=== PATIENT | male | born 1965 | race Caucasian/White ===

== ENCOUNTER → 2019-07-15 10:05 | Outpatient (CLI) | payer OTHER, SELFPAY ==
--- NOTE | 2019-07-15 | DI.NM.S_ITS ---
PROCEDURE: NM IMTIAZ PERF SPECT REST & STR Rest and exercise myocardial perfusion SPECT with gated imaging and ejection fraction RADIOPHARMACEUTICAL: 14.0 mCi Tc-99m sestamibi IV at rest and 25.7 mCi Tc-99m sestamibi IV at peak exercise. A one day-protocol was performed. INDICATIONS: Chest pain, unspecified TECHNIQUE: Radiopharmaceutical was injected at peak stress test, and also at rest. SPECT images were obtained. SPECT myocardial perfusion images were displayed in short axis, horizontal long axis, and vertical long axis views. Gated images were reviewed using [employer] software. COMPARISON: None. CARDIAC STRESS: A standard John treadmill exercise tolerance test was performed by the patient under the supervision of an attending staff. The patient exercised for 9 minutes and 41 seconds reaching 10.1 METs; functional aerobic impairment (ARIADNA) is -5% on active scale. Hemodynamic data: There is normal blood pressure and heart rate response to exercise stress. Patient achieved 98% of maximum predicted heart rate at peak exercise. Symptoms: Patient denied chest pain during exercise. EKG: No diagnostic EKG changes of ischemia; no ectopy. FINDINGS: Raw data: There is good myocardial labeling by radiotracer. No significant motion artifacts. Ilrf-rt-nfpav ratio is 0.26 (normal is less than 0.38 for sestamibi tracer, and less than 0.50 for thallium tracer). Left ventricle function: Gated images demonstrate normal left ventricle wall thickening. No segmental wall motion abnormality. No transient ischemic dilation; TID is 1.03 (normal less than 1.3). The left ventricle resting end-diastolic volume is 124 mL. Left ventricle stress ejection fraction is 61%; normal values are above 45%. Myocardial perfusion: There is normal distribution of activity in the left and right ventricular myocardium. No fixed or reversible perfusion defects. IMPRESSION: Low risk, normal treadmill nuclear stress test 1) No perfusion evidence of ischemia or infarction. 2) Normal left ventricular size, wall motion, and systolic function (EF post stress 61%). 3) No angina during the study. 4) No ECG evidence of ischemia. 5) Above average exercise tolerance (10.1 METs, ARIADNA -5% on active scale). Target heart rate achieved. Appropriate blood pressure response to exercise. 6) No prior nuclear stress test available for comparison. Dictated by: Irma Lundberg MD on 07/15/2019 at 16:36 Approved by: Irma Lundberg MD on 07/15/2019 at 16:40
--- NOTE | 2019-07-15 14:52 | PM.TREADMILL ---
Cardiac Stress Test Report Referral & Results Date Patient Seen: 07/15/19 Time Patient Seen: 14:52 Requesting provider: Silvia Gustafson Indication: Chest discomfort Rest ECG: Unremarkable Procedure Note: Today following both written and verbal informed consent the patient was exercised according to a standard John protocol patient went for a total of 9 minutes 40 achieving a maximum heart rate of 161 maximum systolic blood pressure of 188. This is approximately 10.1 METS. Exercise was terminated at this point because of targets were met. Patient was also given Cardiolite through a previously started Hep-Lock IV by the diagnostic imaging staff approximately 1 minute prior to the cessation of exercise. No ST-T segment changes Heart rate and blood pressure response Functional aerobic impairment rates about-5% on the active scale or 105% of normal Rare PAC Impression: No evidence of ischemia based on ECG criteria Please see perfusion imaging report as well Please note: Actual ECG tracings can be found in the PACS system.
== END ==
PROVIDERS: Visit Provider Family Medicine
DX: R07.89 Other chest pain (principal)
CPT/HCPCS: 78452; 93016; 93017; 93018; A9502

== ENCOUNTER 2022-01-19 16:21 | Emergency (ER) | payer BC, OTHER, SELFPAY ==
[2022-01-19] VITALS (7 sets, daily range): BP systolic 131–172; BP diastolic 82–110; PULSE 64–94; RESP 11–21; TEMP 36.8; O2SAT 97–98; BMI 29.3
--- NOTE | 2022-01-19 16:28 | DI.RAD.S_ITS ---
PROCEDURE: XR CHEST 1V INDICATIONS: chest pain TECHNIQUE: One view of the chest was acquired. COMPARISON: None. FINDINGS: Surgical changes and devices: None. Lungs and pleura: Reduced lung volumes. Lungs are clear. No pleural effusions or pneumothorax. Mediastinum: Mediastinal contours appear normal. Heart size is normal. Bones and chest wall: No suspicious bony lesions. Overlying soft tissues appear unremarkable. IMPRESSION: No acute cardiopulmonary abnormality. Dictated by: Malcolm Murrieta M.D. on 01/19/2022 at 17:01 Approved by: Malcolm Murrieta M.D. on 01/19/2022 at 17:02
[2022-01-19 16:52] LABS: Add Manual Diff / Slide Review NO; Basophils Absolute Auto 0 /uL (0-100); Basophils Percent Auto 0.7 % (0-2); Eosinophils Absolute Auto 100 /uL (0-450); Eosinophils Percent Auto 2.2 % (2-4); Hemoglobin 12.3 g/dL (13.5-17.5); Lymphocytes Absolute Auto 1800 /uL (1100-4500); Lymphocytes Percent Auto 27.5 % (25-40); Mean Corpuscular HGB Conc 34.1 % (30-36); Mean Corpuscular Hemoglobin 30.8 PG (26-34); Mean Corpuscular Volume 90.2 fL (80-100); Monocytes Absolute Auto 700 /uL (0-900); Monocytes Percent Auto 10.3 % (3-14); Neutrophils Absolute Auto 3800 /uL (1500-7000); Neutrophils Percent Auto 59.3 % (50-75); Platelet Count 221 X10^3/uL (150-400); Red Blood Cell Count 3.99 X10^6/uL (4.5-5.9); Red Cell Distribution Width 13.4 % (11.6-14.8); White Blood Cell Count 6.5 X10^3/uL (4.5-11.0)
[2022-01-19 17:00] LABS: Alanine Aminotransferase 33 IU/L (<50); Albumin 4.8 g/dL (3.5-5.0); Albumin Globulin Ratio 1.5 (1.0-2.8); Alkaline Phosphatase 77 U/L (38-126); Aspartate Aminotransferase 60 IU/L (17-59); Bilirubin Total 0.6 mg/dL (0.2-1.3); Blood Urea Nitrogen 20 mg/dL (9-20); Calcium 9.3 mg/dL (8.4-10.2); Carbon Dioxide 26 mmol/L (22-32); Chloride 106 mmol/L (98-107); Creatine Kinase 275 U/L (55-170); Estimated Glomerular Filt Rate > 60.0 mL/min (>60); Globulin 3.1 g/dL (1.7-4.1); Glucose 87 mg/dL (70-100); HEMOLYSIS < 15 (0-50); Lipase 72 U/L (23-300); Potassium 3.9 mmol/L (3.4-5.1); Sodium 141 mmol/L (137-145); Total Protein 7.9 g/dL (6.3-8.2)
--- NOTE | 2022-01-19 17:00 | ED.CHESTPAIN ---
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 He states that he feels a dull ache in the center of his chest it has been there for 3 days. He denies any provocation knee. He thought it was costochondritis as he has had that before. He denies any worsening pain with any deep breaths or movement. Today while driving he had some left shoulder achiness which him to the emergency department. He says that he barely has any discomfort now. He has no shoulder pain or discomfort. He denies any known coronary artery disease. He says that he previously had a flipped t wave, but was not sure what that meant or if it just went away. Related Data Allergies Allergy/AdvReac Type Severity Reaction Status Date / Time doxycycline Allergy Verified 01/19/22 16:37 Review of Systems Review of Systems Narrative: GENERAL: Denies chills, fatigue, malaise, fever, sweats, travel HEENT: Denies sinus pain, ear pain, sore throat, difficulty swallowing, neck pain RESPIRATORY: Denies dyspnea, cough, wheezing, hemoptysis, sputum. CARDIOVASCULAR: See HPI GASTROINTESTINAL: Denies nausea, vomiting, abdominal pain, diarrhea, constipation, melena. : Denies dysuria, frequency, incontinence, hematuria, urinary retention, flank pain. MUSCULOSKELETAL: Denies weakness, joint pain, or bony pain SKIN: No rash, no erythema, no pruritus NEUROLOGIC: Denies weakness, dizziness, headache, numbness, change in speech, confusion PSYCHIATRIC: No concerning psychosocial issues. 12 point review of systems is negative except for those stated above and HPI Patient History Social History Smoking Status: Never smoker Smoking Status: Never smoker Substance Use Type: does not use Exam Initial Vital Signs Initial Vital Signs: Vital Signs Temperature 98.3 F 01/19/22 16:31 Pulse Rate 77 01/19/22 16:31 Respiratory Rate 20 01/19/22 16:31 Blood Pressure 172/110 H 01/19/22 16:31 Pulse Oximetry 98 01/19/22 16:31 GENERAL: Well-appearing, well-nourished and in no acute distress. HEENT: Head atraumatic,EOMI, pupils reactive, face symmetric, moist mucous membranes CARDIOVASCULAR: Regular rate and rhythm without murmurs, rubs or gallops. RESPIRATORY: Breath sounds equal bilaterally, no wheezes rales or rhonchi. ABDOMEN: Soft, nontender. Normoactive bowel sounds all 4 quadrants. No guarding or rebound. EXTREMITIES: Normal range of motion, no clubbing or edema. Neurovascularly intact NEUROLOGICAL: Alert and oriented x4.Normal gait and speech. SKIN: Warm, dry, no laceration, no petechiae, no rashes or lesions. Course Orders Ordered: ED Orders 01/19/22 16:28 XR chest 1V Stat EKG-12 Lead Stat 01/19/22 16:38 Complete Blood Count AUTO DIFF Stat Comprehensive Metabolic Panel Stat Lipase Stat Magnesium Stat Partial Thromboplastin Time Stat Prothrombin Time INR Stat Troponin & CK Cardiac Panel Stat 01/19/22 17:26 PT [Prothrombin Time INR] Stat PTT [Partial Thromboplastin Time] Stat 01/19/22 17:46 COVID19 -Nasal swab/Pre-Proc Stat Discontinued Medications Aspirin (Aspirin 81 Mg Chew Tab) 324 mg PO NOW ONE Stop: 01/19/22 17:27 Last Admin: 01/19/22 17:38 Dose: 324 mg Documented by: TIN Heparin Sodium (Porcine) (Heparin 5,000 Unit/Ml Vial) 5,000 unit IV NOW ONE Stop: 01/19/22 17:27 Last Admin: 01/19/22 17:39 Dose: 5,000 unit Documented by: TIN Heparin Sodium/Dextrose (Heparin Drip) 25,000 unit in 500 mls @ 21.01 mls/hr IV CONT GABE; Protocol Last Titration: 01/19/22 19:29 Dose: 0 units/kg/hr, 0 mls/hr Documented by: Titration: 01/19/22 17:41 Dose: 11.42 units/kg/hr, 20 mls/hr Documented by: Admin: 01/19/22 17:38 Dose: 12 units/kg/hr, 21.01 mls/hr Documented by: TIN Metoprolol Tartrate (Metoprolol Ir 25 Mg Tablet) 25 mg PO NOW ONE Stop: 01/19/22 17:41 Last Admin: 01/19/22 17:43 Dose: 25 mg Documented by: TIN Nitroglycerin (Nitroglycerin 0.4 Mg Sl Tab) 0.4 mg SL NOW ONE Stop: 01/19/22 17:41 Last Admin: 01/19/22 17:43 Dose: 0.4 mg Documented by: TIN Vital Signs Vital signs: Vital Signs - 8 hr 01/19/22 16:31 01/19/22 17:24 01/19/22 17:25 Temperature 98.3 F Pulse Rate 77 94 H 76 Respiratory Rate 20 21 12 Blood Pressure 172/110 H 131/82 Pulse Oximetry 98 97 01/19/22 17:30 01/19/22 17:43 01/19/22 18:00 Temperature Pulse Rate 80 77 66 Respiratory Rate 13 11 L Blood Pressure 154/104 H 154/104 H 134/84 Pulse Oximetry 97 98 01/19/22 18:30 Temperature Pulse Rate 64 Respiratory Rate 18 Blood Pressure 132/83 Pulse Oximetry 97 MDM - Chest Pain Lab Data Result diagrams: 01/19/22 16:38 01/19/22 16:38 Labs: Lab Results 01/19/22 01/19/22 01/19/22 Range/Units 16:38 16:38 16:38 WBC 6.5 (4.5-11.0) X10^3/uL RBC 3.99 L (4.5-5.9) X10^6/uL Hgb 12.3 L (13.5-17.5) g/dL Hct 36.0 L (41-53) % MCV 90.2 (80-100) fL MCH 30.8 (26-34) PG MCHC 34.1 (30-36) % RDW 13.4 (11.6-14.8) % Plt Count 221 (150-400) X10^3/uL Neut % (Auto) 59.3 (50-75) % Lymph % (Auto) 27.5 (25-40) % [place] % (Auto) 10.3 (3-14) % Eos % (Auto) 2.2 (2-4) % Baso % (Auto) 0.7 (0-2) % Neut # (Auto) 3800 (3784-2518) /uL Lymph # (Auto) 1800 (9705-2524) /uL [place] # (Auto) 700 (0-900) /uL Eos # (Auto) 100 (0-450) /uL Baso # (Auto) 0 (0-100) /uL PT 12.0 (10.1-12.7) SECONDS INR 1.1 (0.9-1.3) APTT 36 (26.4-36.2) SECONDS Sodium 141 (137-145) mmol/L Potassium 3.9 (3.4-5.1) mmol/L Chloride 106 (98-107) mmol/L Carbon Dioxide 26 (22-32) mmol/L BUN 20 (9-20) mg/dL Creatinine 1.05 (0.66-1.25) mg/dL Estimated GFR > 60.0 (>60) mL/min BUN/Creatinine Ratio 19.0 (6-22) Glucose 87 (70-100) mg/dL Calcium 9.3 (8.4-10.2) mg/dL Magnesium 2.0 (1.6-2.3) mg/dL Total Bilirubin 0.6 (0.2-1.3) mg/dL AST 60 H (17-59) IU/L ALT 33 (<50) IU/L Alkaline Phosphatase 77 (38-126) U/L Total Creatine Kinase 275 H (55-170) U/L CK-MB (CK-2) 5.10 H (<2.37) ng/mL CK-MB (CK-2) Rel Index 1.9 (1.5-5.0) % Troponin I 2.210 H* (0.01-0.034) ng/mL Total Protein 7.9 (6.3-8.2) g/dL Albumin 4.8 (3.5-5.0) g/dL Globulin 3.1 (1.7-4.1) g/dL Albumin/Globulin Ratio 1.5 (1.0-2.8) Lipase 72 (23-300) U/L SARS-CoV-2 (PCR) (Negative) 01/19/22 Range/Units 17:46 WBC (4.5-11.0) X10^3/uL RBC (4.5-5.9) X10^6/uL Hgb (13.5-17.5) g/dL Hct (41-53) % MCV (80-100) fL MCH (26-34) PG MCHC (30-36) % RDW (11.6-14.8) % Plt Count (150-400) X10^3/uL Neut % (Auto) (50-75) % Lymph % (Auto) (25-40) % [place] % (Auto) (3-14) % Eos % (Auto) (2-4) % Baso % (Auto) (0-2) % Neut # (Auto) (8341-3580) /uL Lymph # (Auto) (9514-6592) /uL [place] # (Auto) (0-900) /uL Eos # (Auto) (0-450) /uL Baso # (Auto) (0-100) /uL PT (10.1-12.7) SECONDS INR (0.9-1.3) APTT (26.4-36.2) SECONDS Sodium (137-145) mmol/L Potassium (3.4-5.1) mmol/L Chloride (98-107) mmol/L Carbon Dioxide (22-32) mmol/L BUN (9-20) mg/dL Creatinine (0.66-1.25) mg/dL Estimated GFR (>60) mL/min BUN/Creatinine Ratio (6-22) Glucose (70-100) mg/dL Calcium (8.4-10.2) mg/dL Magnesium (1.6-2.3) mg/dL Total Bilirubin (0.2-1.3) mg/dL AST (17-59) IU/L ALT (<50) IU/L Alkaline Phosphatase (38-126) U/L Total Creatine Kinase (55-170) U/L CK-MB (CK-2) (<2.37) ng/mL CK-MB (CK-2) Rel Index (1.5-5.0) % Troponin I (0.01-0.034) ng/mL Total Protein (6.3-8.2) g/dL Albumin (3.5-5.0) g/dL Globulin (1.7-4.1) g/dL Albumin/Globulin Ratio (1.0-2.8) Lipase (23-300) U/L SARS-CoV-2 (PCR) Negative (Negative) Imaging Data Chest x-ray: Radiologist's Impression: PROCEDURE:? XR CHEST 1V ? INDICATIONS:? chest pain ? TECHNIQUE:? One view of the chest was acquired.? ? COMPARISON:? None. ? FINDINGS:? ? Surgical changes and devices:? None.? ? Lungs and pleura:? Reduced lung volumes.? Lungs are clear.? No pleural effusions or pneumothorax.? ? Mediastinum:? Mediastinal contours appear normal.? Heart size is normal.? ? Bones and chest wall:? No suspicious bony lesions.? Overlying soft tissues appear unremarkable.? ? IMPRESSION:? No acute cardiopulmonary abnormality. ? ? Dictated by: Malcolm Murrieta M.D. on 01/19/2022 at 17:01 ? ? ECG Data Interpretation: Normal sinus rhythm rate 75 MN interval 132 QRS 86 QTC is [address] changes T-wave inversion noted in lead 3 only- No priors EKG 2. Normal sinus rhythm rate 76 PVC noted T-wave inversion noted in lead 3 only MDM Narrative Medical decision making narrative: Patient's symptom of dull chest discomfort radiating to left shoulder with risk factors are certainly concerning. No EKG changes except for a T-wave inversion in lead 3 which may or may not be old. Patient is found have an elevated troponin 2.2. He is given nitroglycerin does which does not resolve any of his discomfort he rates his pain as a 1-[address] Lundberg cardiology updated on patient's symptoms test results and agrees patient needs to be transferred over to [facility]. [address] Ekaterina Timmons, hospitalist has been updated patient's symptoms test results and agrees with transfer and accepted Critical Care Time Critical Care Time Critical Care Time: Yes Total Critical Care Time: 32 Attestation: The high probability of a clinically significant, sudden or life threatening deterioration of the [cardiovascular] system(s) required my full and direct attention, intervention and personal management. The aggregate critical care time was 32 minutes. This time is in addition to time spent performing reported procedures but includes the following: [x] Data Review and interpretation [x] Patient assessment and monitoring of vital signs [x] Documentation [x] Medication orders and management Discharge Plan Departure Patient Disposition: [facility] Clinical Impression: Acute non-ST elevation myocardial infarction (NSTEMI)
[2022-01-19 17:06] LABS: INR 1.1 (0.9-1.3)
[2022-01-19 17:09] LABS: PTT Partial Thromboplastin Tim 36 SECONDS (26.4-36.2)
[2022-01-19 17:15] LABS: CKMB % Relative Index 1.9 % (1.5-5.0)
[2022-01-19] MEDS: HEPARIN DRIP 25,000 UNIT/500 ML IV.SOLN 21.01 UNIT IV (17:38)
[2022-01-19] MEDS: ASPIRIN 81 MG CHEW TAB 324 MG PO (17:38)
[2022-01-19] MEDS: HEPARIN 5,000 UNIT/ML VIAL 5000 UNIT IV (17:39)
[2022-01-19] MEDS: NITROGLYCERIN 0.4 MG SL TAB SL (17:43)
[2022-01-19] MEDS: METOPROLOL IR 25 MG TABLET PO (17:43)
[2022-01-19 18:31] LABS: COVID19 -Nasal RAPID Negative (Negative)
--- NOTE | 2022-01-19 19:30 | PC.NURSE ---
Patient left with heparin infusing for transfer to [facility] for NSTEMI.
== END 2022-01-19 19:30 | disposition short-term general hospital (02) ==
PROVIDERS: Emergency Provider Emergency Medicine
DX: I21.4 Non-ST elevation (NSTEMI) myocardial infarction (principal); I10 Essential (primary) hypertension; Z20.822 Contact with and (suspected) exposure to COVID-19
CPT/HCPCS: 36415; 71045; 80053; 82550; 82553; 83690; 83735; 84484; 85025; 85610; 85730; 87635; 93005; 96365; 96366; 99284; 99291; C9803; J1644

== ENCOUNTER 2024-09-14 19:07 | Emergency (ER) | payer BC, OTHER, SELFPAY ==
[2024-09-14 19:22] VITALS: BP 159/86; PULSE 78; RESP 16; TEMP 36.6; O2SAT 96
--- NOTE | 2024-09-14 19:41 | ED_ITS ---
HPI - URI/Sore Throat General Chief Complaint: Upper Respiratory Symptoms Stated Complaint: coughing fit, syncope Time Seen by Provider: 09/14/24 19:35 Source: patient Mode of arrival: Ambulatory History of Present Illness HPI Narrative: 59-year-old male with history of previous syncopal episodes felt to be vasovagal in nature per his report, no antiarrhythmics taken, no cardiac issues known, no history of seizures, has had 2 weeks duration of cough, has been prescribed inhaler which he has been reluctant to use due to reading about high blood pressure side effects, has been prescribed Tessalon during this illness which is not helping, using [id number] anti cough medicines. He had a coughing fit this afternoon, and briefly passed out. [place] similar to his previous syncopal episodes. He recovered quickly. No preceding palpitations or chest discomfort or shortness of breath, none after the event. No neurological problems. Denies shaking activity, incontinence. No fall injury or blunt trauma. Denies weakness numbness to face arm or leg. Related Data Allergies Allergy/AdvReac Type Severity Reaction Status Date / Time doxycycline Allergy Verified 01/19/22 16:37 Review of Systems Review of Systems Narrative: see HPI Patient History Social History Smoking Status: Never smoker Smoking Status: Never smoker Substance Use Type: does not use Exam Narrative Exam Narrative: GENERAL: Well-developed patient, in mild distress. HEAD: Atraumatic. Normocephalic. EYES: Pupils equal round and reactive. Extraocular motions intact. No scleral icterus. No injection or drainage. ENT: Nose without bleeding, purulent drainage. Throat without erythema, tonsillar hypertrophy or exudate. Airway patent. NECK: Trachea midline. Non tender CARDIOVASCULAR: Regular rate and rhythm without murmurs, gallops, or rubs. RESPIRATORY: Clear to auscultation. Breath sounds equal bilaterally. No wheezes, rales, or rhonchi. GASTROINTESTINAL: Abdomen soft, non-tender, nondistended. EXTREMITIES: No edema or joint tenderness. BACK: Nontender without deformity or crepitance. No flank tenderness. NEURO: AOx3. Motor functions grossly nonfocal SKIN: No rash or erythema of visible areas Initial Vital Signs Initial Vital Signs: Vital Signs Temperature 98 F 09/14/24 19:22 Pulse Rate 78 09/14/24 19:22 Respiratory Rate 16 09/14/24 19:22 Blood Pressure 159/86 H 09/14/24 19:22 Pulse Oximetry 96 09/14/24 19:22 Oxygen Delivery Method Room Air 09/14/24 19:22 Course Orders Ordered: Discontinued Medications Hydrocodone Bitart/Acetaminophen (Hydrocodone/Acet 5/325 Prepack) 1 bottle MISC DIRECTED ONE Stop: 09/14/24 20:08 Last Admin: 09/14/24 20:18 Dose: 1 bottle Documented By: ESE Vital Signs Vital signs: Vital Signs - 8 hr 09/14/24 19:22 09/14/24 19:52 Temperature 98 F 98.6 F Pulse Rate 78 82 Respiratory Rate 16 18 Blood Pressure 159/86 H 141/84 H Pulse Oximetry 96 97 Oxygen Delivery Method Room Air Room Air MDM - URI/Sore Throat MDM Narrative Medical decision making narrative: 59-year-old male with history of syncopal episodes, now with 2 weeks duration of dry cough, previous swabs negative, had post-tussive syncopal episode today, brief in nature, quickly recovered. He had prescription for albuterol that he was reluctant to use for cough control due to his reading about blood pressure effects, has the albuterol at home, not yet using. He believes Tessalon prescription is not helping his cough. He seems amenable to hydrocodone antitussive, home pack for discharge. We discussed workup of syncope here now that might include EKG, chest x-ray, lab testing, telemetry monitoring. He declines testing for now. We will dispense spacer that he can use with his recently-filled inhaler pr escription at home, 2 puffs 4 times daily for the next week advised. Consider use of hydrocodone for cough control. Homepack dispensed, but no Rx sent for further. Recheck cough symptoms with his regular doctor advised in couple of days if not improving. Return precautions discussed. Stable home with , who was at bedside for discussion and was in agreement with patient's decision to declined further offered workup at this time. Discharge Plan Departure Patient Disposition: Home Clinical Impression: Post-tussive syncope, Upper respiratory infection Activity Restrictions/Additional Instructions: History of prior syncopal episodes with no specific diagnosis or treatment. Syncopal episode today after a coughing fit, brief in nature, quickly resolved, no sequelae. We discussed further workup of syncope that might include EKG and blood testing, declined for now. We discussed strategies for better cough control to hopefully prevent recurrent problems with post-tussive post cough syncope. Recent cough symptoms for the last couple of days, cough not controlled with Tessalon prescription, currently also without control [id number] anti cough measures. Previous prescription filled at home for albuterol, not being used for concerns about blood pressure effects. Spacer d ispensed to use with home inhaler. Encouraged to use inhaler for better cough control. Home pack of hydrocodone tablets to use if needed for cough control, as hydrocodone can be useful for cough suppression short term. Avoid driving and use of equipment until cough seems reliably controlled, as you might be risk for passing out again. Recheck symptoms next couple of days with the regular doctor, further workup outside outpatient for now. Return to this/nearest emergency department for any change worsening symptoms or any concerns prior Referrals: Kika Monique PA-C [Primary Care Provider] - Stand Alone Forms: Patient Portal/API
[2024-09-14 19:52] VITALS: BP 141/84; PULSE 82; RESP 18; TEMP 37; O2SAT 97
[2024-09-14] MEDS: HYDROCODONE/ACET 5/325 PREPACK 1 BOTTLE MISC (20:18)
== END 2024-09-14 20:21 | disposition home or self-care (01) ==
PROVIDERS: Emergency Provider Emergency Medicine; PCP Physician Assistant
DX: J06.9 Acute upper respiratory infection, unspecified (principal); R05.8 Other specified cough; R55 Syncope and collapse
CPT/HCPCS: 99281; 99283